=== PATIENT | female | born 1985 ===

== ENCOUNTER 2018-10-12 00:37 | Emergency (ER) | payer SELFPAY ==
--- NOTE | 2018-10-12 01:10 | EDPHYS ---
Physician Documentation [facility] Name: Britany Chung Age: 33 yrs Sex: Female : 1985 Arrival Date: 10/12/2018 Time: 00:43 Bed 15 Private MD: TOYA Physician Willam Rodriguez HPI: 10/12 01:04 This 33 yrs old Female presents to ER via Ambulatory with complaints of vishnu Toothache. 01:04 The patient presents with broken tooth/teeth, pain, swelling. The problem is located in [facility] the lower left third molar. Onset: The symptoms/episode began/occurred 3 day(s) ago. Duration: The symptoms are continuous, and are steadily getting worse. Modifying factors: The symptoms are alleviated by nothing. Associated signs and symptoms: The patient has no apparent associated signs or symptoms. Severity of symptoms: At their worst the symptoms were mild, moderate, in the emergency department the symptoms are unchanged. The patient has not experienced similar symptoms in the past. 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 - Social history:: Smoking status: Patient/guardian denies using tobacco. - Ebola Screening: : Patient negative for fever greater than or equal to 101.5 degrees Fahrenheit, and additional compatible Ebola Virus Disease symptoms Patient denies exposure to infectious person Patient denies travel to an Ebola-affected area in the 21 days before illness onset No symptoms or risks identified at this time. - Family history:: not pertinent. ROS: 01:04 Constitutional: Negative for fever, chills, and weight loss, Eyes: Negative for injury, vishnu pain, redness, and discharge, Neck: Negative for injury, pain, and swelling, Cardiovascular: Negative for chest pain, palpitations, and edema, Respiratory: Negative for shortness of breath, cough, wheezing, and pleuritic chest pain, Abdomen/GI: Negative for abdominal pain, nausea, vomiting, diarrhea, and constipation, Back: Negative for injury and pain, : Negative for injury, bleeding, discharge, and swelling, MS/Extremity: Negative for injury and deformity, Skin: Negative for injury, rash, and discoloration, Neuro: Negative for headache, weakness, numbness, tingling, and seizure, Psych: Negative for depression, anxiety, suicide ideation, homicidal ideation, and hallucinations, Allergy/Immunology: Negative for hives, rash, and allergies, Endocrine: Negative for neck swelling, polydipsia, polyuria, polyphagia, and marked weight changes, Hematologic/Lymphatic: Negative for swollen nodes, abnormal bleeding, and unusual bruising. 01:04 ENT: Negative for injury or acute deformity, drainage from ear(s). Exam: 01:04 Constitutional: This is a well developed, well nourished patient who is awake, alert, vishnu and in no acute distress. Eyes: Pupils equal round and reactive to light, extra-ocular motions intact. Lids and lashes normal. Conjunctiva and sclera are non-icteric and not injected. Cornea within normal limits. Periorbital areas with no swelling, redness, or edema. ENT: Nares patent. No nasal discharge, no septal abnormalities noted. Tympanic membranes are normal and external auditory canals are clear. Oropharynx with no redness, swelling, or masses, exudates, or evidence of obstruction, uvula midline. Mucous membranes moist. Neck: Trachea midline, no thyromegaly or masses palpated, and no cervical lymphadenopathy. Supple, full range of motion without nuchal rigidity, or vertebral point tenderness. No Meningismus. Chest/axilla: Normal chest wall appearance and motion. Nontender with no deformity. No lesions are appreciated. Cardiovascular: Regular rate and rhythm with a normal S1 and S2. No gallops, murmurs, or rubs. Normal PMI, no JVD. No pulse deficits. Respiratory: Lungs have equal breath sounds bilaterally, clear to auscultation and percussion. No rales, rhonchi or wheezes noted. No increased work of breathing, no retractions or nasal flaring. Abdomen/GI: Soft, non-tender, with normal bowel sounds. No distension or tympany. No guarding or rebound. No evidence of tenderness throughout. Back: No spinal tenderness. No costovertebral tenderness. Full range of motion. Skin: Warm, dry with normal turgor. Normal color with no rashes, no lesions, and no evidence of cellulitis. MS/ Extremity: Pulses equal, no cyanosis. Neurovascular intact. Full, normal range of motion. Neuro: Awake and alert, GCS 15, oriented to person, place, time, and situation. Cranial nerves II-XII grossly intact. Motor strength 5/5 in all extremities. Sensory grossly intact. Cerebellar exam normal. Normal gait. Psych: Awake, alert, with orientation to person, place and time. Behavior, mood, and affect are within normal limits. 01:04 Head/face: Noted is left lower jaw pain, no trismus. Vital Signs: 00:53 BP 156 / 106; Pulse 105; Resp 22; Temp 97.3(O); Pulse Ox 94% on R/A; Weight 195.04 kg; ed1 Height 5 ft. 3 in. (160.02 cm); Pain 8/10; 00:53 Body Mass Index 76.17 (195.04 kg, 160.02 cm) ed1 MDM: 00:56 Patient medically screened. vishnu Administered Medications: 01:12 Not Given (Duplicate Order): [place] (7.5 mg-325 mg) 2 tabs PO once vishnu 01:15 Drug: KeFLEX 500 mg Route: PO; jb4 01:23 Follow up: Response: Medication administered at discharge. jb4 01:15 Drug: Motrin 800 mg Route: PO; jb4 :23 Follow up: Response: Medication administered at discharge. jb4 01:15 Drug: [place] 10 mg-325 mg 1 tabs Route: PO; jb4 01:23 Follow up: Response: Medication administered at discharge. 4 Disposition: 10/12/18 01:09 Discharged to Home. Impression: Dental caries - pain, Dental caries, unspecified. - Condition is Stable. - Discharge Instructions: Dental Caries, Adult, Dental Pain, Dental Pain, [id number]. - Prescriptions for Keflex 500 mg Oral Capsule - take 1 capsule by ORAL route every 6 hours for 10 days; 40 capsule. Tylenol- Codeine #3 300-30 mg Oral Tablet - take 2 tablet by ORAL route every 6 hours As needed; 30 tablet. Ibuprofen 600 mg Oral Tablet - take 1 tablet by ORAL route every 6 hours As needed take with food; 20 tablet. - Medication Reconciliation Form, Thank You Letter, Antibiotic Education, Prescription Opioid Use form. - Follow up: Private Physician; When: 2 - 3 days; Reason: Recheck today's complaints, Continuance of care, Re-evaluation by your physician. - Problem is new. - Symptoms have improved. Signatures: Willam Rodriguez MD MD cha Riggs, Erika RN RN ed1 Francis Acosta, RN RN jb4 Corrections: (The following items were deleted from the chart) 01:27 01:09 10/12/2018 01:09 Discharged to Home. Impression: Dental caries - pain; Dental jb4 caries, unspecified. Condition is Stable. Forms are Medication Reconciliation Form, Thank You Letter, Antibiotic Education, Prescription Opioid Use. Follow up: Private Physician; When: 2 - 3 days; Reason: Recheck today's complaints, Continuance of care, Re-evaluation by your physician. Problem is new. Symptoms have improved. vishnu
--- NOTE | 2018-10-12 01:10 | ER ---
Nurse's Notes [facility] Name: Britany Chung Age: 33 yrs Sex: Female : 1985 Arrival Date: 10/12/2018 Time: 00:43 Bed 15 Private MD: Diagnosis: Dental caries-pain;Dental caries, unspecified Presentation: 10/12 00:51 Presenting complaint: Patient states: I have a broken tooth and it started to hurt ed1 really bad and it is swelling. Transition of care: patient was not received from another setting of care. Onset of symptoms was October 12, 2018. Risk Assessment: Do you want to hurt yourself or someone else? Patient reports no desire to harm self or others. Initial Sepsis Screen: Does the patient meet any 2 criteria? No. Patient's initial sepsis screen is negative. Does the patient have a suspected source of infection? No. Patient's initial sepsis screen is negative. Care prior to arrival: Medication(s) given: Motrin, Tylenol. 00:51 Method Of Arrival: Ambulatory ed1 00:51 Acuity: ANGELIQUE 4 ed1 Triage Assessment: 00:53 General: Appears uncomfortable, Behavior is calm, cooperative. Pain: Complains of pain ed1 in mouth Pain currently is 8 out of 10 on a pain scale. EENT: Reports pain in mouth. 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 - Social history:: Smoking status: Patient/guardian denies using tobacco. - Ebola Screening: : Patient negative for fever greater than or equal to 101.5 degrees Fahrenheit, and additional compatible Ebola Virus Disease symptoms Patient denies exposure to infectious person Patient denies travel to an Ebola-affected area in the 21 days before illness onset No symptoms or risks identified at this time. - Family history:: not pertinent. Screenin: Abuse screen: Denies threats or abuse. Nutritional screening: No deficits noted. jb4 Tuberculosis screening: No symptoms or risk factors identified. Fall Risk None identified. Assessment: 01:23 General: Appears in no apparent distress. uncomfortable, Behavior is calm, cooperative, jb4 appropriate for age. Pain: Complains of pain in mouth Pain does not radiate. Pain currently is 8 out of 10 on a pain scale. Quality of pain is described as throbbing, pulsating. Neuro: Level of Consciousness is awake, alert, obeys commands, Oriented to person, place, time, situation. Cardiovascular: Patient's skin is warm and dry. Respiratory: Airway is patent Respiratory effort is even, unlabored, Respiratory pattern is regular, symmetrical. GI: No signs and/or symptoms were reported involving the gastrointestinal system. : No signs and/or symptoms were reported regarding the genitourinary system. EENT: Dental caries noted in mouth. Derm: Skin is intact, Skin is pink, warm \T\ dry. Musculoskeletal: Circulation, motion, and sensation intact. Vital Signs: 00:53 BP 156 / 106; Pulse 105; Resp 22; Temp 97.3(O); Pulse Ox 94% on R/A; Weight 195.04 kg; ed1 Height 5 ft. 3 in. (160.02 cm); Pain 8/10; 00:53 Body Mass Index 76.17 (195.04 kg, 160.02 cm) ed1 ED Course: 00:43 Patient arrived in ED. es 00:53 Triage completed. ed1 00:53 Arm band placed on right wrist. ed1 00:55 Willam Rodriguez MD is Attending Physician. [facility] 01:08 Francis Acosta RN is Primary Nurse. jb4 01:23 Patient has correct armband on for positive identification. Bed in low position. Call jb4 light in reach. Side rails up X 1. Pulse ox on. NIBP on. 01:23 No provider procedures requiring assistance completed. Patient did not have IV access jb4 during this emergency room visit. Administered Medications: 01:12 Not Given (Duplicate Order): [place] (7.5 mg-325 mg) 2 tabs PO once vishnu 01:15 Drug: KeFLEX 500 mg Route: PO; jb4 01:23 Follow up: Response: Medication administered at discharge. jb4 01:15 Drug: Motrin 800 mg Route: PO; jb4 :23 Follow up: Response: Medication administered at discharge. jb4 01:15 Drug: [place] 10 mg-325 mg 1 tabs Route: PO; jb4 01:23 Follow up: Response: Medication administered at discharge. jb4 Outcome: 01:09 Discharge ordered by . vishnu :23 Discharged to home ambulatory, with family. jb4 : Condition: stable 01:23 Discharge instructions given to patient, family, Instructed on discharge instructions, follow up and referral plans. medication usage, Demonstrated understanding of instructions, follow-up care, medications, Prescriptions given X 3. 01:27 Patient left the ED. jb4 Signatures: Willam Rodriguez MD MD cha Salyer, Edna es Riggs, Erika, RN RN ed1 Francis Acosta RN RN jb4
[2018-10-12] MEDS ORDERED: HYDROCODONE/APAP 10/325 TAB ONE (01:28)
[2018-10-12] MEDS ORDERED: IBUPROFEN 400 MG TAB ONE (01:28)
[2018-10-12] MEDS ORDERED: CEPHALEXIN 250 MG CAP ONE (01:28)
== END 2018-10-12 01:27 | disposition home or self-care (01) ==
LOC: ER 00:37
DX: K02.9 Dental caries, unspecified (principal)
CPT/HCPCS: 99283